=== PATIENT | male | born 1960 | race Caucasian/White ===

== ENCOUNTER → 2018-12-26 09:23 | Outpatient (CLI) | payer BC ==
[~2018-12-26 09:23] MED LIST: BAYER CHEWABLE81 MG PO; COLACE100 MG PO; FLOMAX0.4 MG PO; K-TAB10 MEQ PO; LISINOPRIL20 MG PO; LOPRESSOR25 MG PO; MYLANTA / MAALO30 ML PO; PERCOCET 5-3251 TAB PO; PLAVIX75 MG PO; Senokot-S Tablet PO; ZOCOR40 MG PO
== END | disposition home or self-care (01) ==
LOC: D.HCCARDIO 09:23
DX: I20.9 Angina pectoris, unspecified (principal)

== ENCOUNTER 2019-01-20 11:12 | Outpatient (CLI) | payer BC ==
[~2019-01-20] VITALS: Ht 175.3 cm; Wt 87.3 kg
--- NOTE | ~2019-01-20 | HEMODYNAMI ---
PATIENT:LISA SANTOS MEDICAL RECORD: [id number] : 58 LOCATION:[facility] ADMISSION DATE: 01/20/19 Generatedon:01/20/201914:37 Patient name: LISA SANTOS Patient #: [id number] SSN: : 1960 Date of study: 01/20/2019 Page: Of Hemodynamic Procedure Report Patient Data Patient Demographics Procedure consent was obtained First Name: LISA Gender: Male Last Name: DANIELLE : 1960 [facility] Initial: ESTRELLA Age: 58 year(s) Patient #: [id number] Race: Unknown Additional ID: [id number] Contact details Address: [address] [place] [address] State: [place] City: [place] Zip code: [address] Past Medical History Allergies Allergen Reaction Date Comments Reported Morphine 01/20/2019 Admission Admission Data Admission Date: 01/20/2019 Admission Time: 11:12 Lab Results Lab Result Date: 01/20/2019 Lab Result Time: 0:00 Biochemistry Name Units Result Min Max BUN mg/dl 18 --(---*)-- 7 18 Creatinine mg/dl 1.1 --(--*-)-- 0.6 1.3 CBC Name Units Result Min Max Hematocrit % 42 --(*---)-- 42 54 Hemoglobin g/dl 14.4 --(*---)-- 13.5 17.5 Procedure Procedure Types Cath Procedure Diagnostic Procedure [facility] w/Coronaries Procedure Description Procedure Date Procedure Date: 01/20/2019 Procedure Start Time: 14:23 Procedure End Time: 14:36 Procedure Staff Name Function David Slade MD Performing Physician Melanie Allison RT Monitor Trenton Wood RT Scrub Ebony Collier RN Nurse Procedure Data Cath Procedure Fluoroscopy Diagnostic fluoroscopy Total fluoroscopy Time: 0 time: 0 min min Diagnostic fluoroscopy Total fluoroscopy dose: 494 dose: 494 mGy mGy Contrast Material Contrast Material Type Amount (ml) Isovue 300 62 Entry Location Entry Primary Successful Side Size Upsize Upsize Entry Closure Go ccessful Closure Location (Fr) 1 (Fr) 2 (Fr) Remarks Device Remarks Radial Right 6 Fr Mechanical artery Short Compression Estimated blood loss: 10 ml Diagnostic catheters Device Type Used For End Catheter Placement DIAGNOSTIC Torrington 110cm 5 Procedure Fr catheter ([id number]) Procedure Complications No complications Procedure Medications Medication Administration Route Dosage Oxygen etCO2 Nasal cannula 2 l/min Lidocaine 2% added to field 20 Heparin Flush Bag added to field 2 bags (1000units/500ml NS) 0.9% NaCl I.V. 100 ml/hr Versed I.V. 1 mg Fentanyl I.V. 50 mcg Versed I.V. 1 mg Fentanyl I.V. 50 mcg Radial Cocktail I.A. 1 syringe (Verapamil 2mg/Nitro 400mcg/Heparin 1500units) Hemodynamics Rest HGB: 14.4 (g/dl) Heart Rate: 64 (bpm) Pressure Samples Time Site Value (mmHg) Purpose Heart Use Rate(bpm) 14:26 LV 113/-8,7 EDP 72 Gradients Valve Time Site Site Mean SEP/DFP Peak To Heart Use 1 2 (mmHg) (sec/min) Peak Rate (mmHg) (bpm) Aortic 14:26 LV AO 73 Snapshots Pre Cath Intra NCS Post Cath Vital Signs Time Heart Resp SPO2 etCO2 NIBP Rhythm Pain Sedation Rate (ipm) (%) (mmHg) (mmHg) Status Level (bpm) 14:17:54 67 12 100 37.4 113/67(85) NSR 0 (11) 10(A) , No pain 14:22:05 66 17 99 47.9 107/63(84) NSR 0 (11) 10(A) , No pain 14:26:11 72 15 98 0 97/61(74) NSR 0 (11) 9(A) , No pain 14:30:21 73 11 100 12.7 111/58(87) NSR 0 (11) 9(A) , No pain 14:34:33 68 16 100 0 104/60(77) NSR 0 (11) 10(A) , No pain Medications Time Medication Route Dose Verified Delivered Reason Notes Effectiveness by by 14:15:27 Oxygen etCO2 2 l/min David Buffie used for Nasal Berlin Collier RN procedure cannula 14:15:36 Lidocaine 2% added 20ml David David for local to vial Berlin Slade MD anesthetic field 14:15:42 Heparin Flush added 2 bags David David used for Bag to Berlin Slade MD procedure (1000units/500ml field NS) 14:15:52 0.9% NaCl I.V. 100 David Buffie Per ml/hr Berlin Collier RN physician 14:20:24 Versed I.V. 1 mg David Buffie for sedation Berlin Collier RN 14:20:30 Fentanyl I.V. 50 mcg David Buffie for sedation Berlin Collier RN 14:23:37 Radial Cocktail I.A. 1 David David for (Verapamil syringe Berlin Slade MD vasodilation 2mg/Nitro 400mcg/Heparin 1500units) 14:25:21 Versed I.V. 1 mg David Buffie for sedation Berlin Collier RN 14:25:25 Fentanyl I.V. 50 mcg David Buffie for sedation Berlin Collier RN Procedure Log Time Note 13:50:57 Ebony Collier RN sent for patient. Start room use. 13:55:40 Signed procedure consent form obtained from patient. 13:55:41 Diagnostic Cath status Elective 13:55:42 Time tracking: Regular hours (M-F 7:00 - 5:00) 13:55:46 Plan of Care:Hemodynamics will remain stable., Cardiac rhythm will remain stable., Comfort level will be maintained., Respiratory function will remain adequate., Patient/ family verbilizes understanding of procedure., Procedure tolerated without complication., Recovers from procedure without complications.. 13:57:39 H&P Date Dictated: 12/17/2018 Within 30 days and on chart., H&P Addendum completed by physician on day of procedure. (MUST COMPLETE FOR ALL OUTPATIENTS). 13:57:47 Patient allergic to Morphine 14:03:46 Lab Result : BUN 18 mg/dl 14:03:46 Lab Result : Hemoglobin 14.4 g/dl 14:03:46 Lab Result : Creatinine 1.1 mg/dl 14:03:46 Lab Result : Hematocrit 42 % 14:03:59 Patient received from Pre/Post Procedure Room to CCL 1 Alert and oriented. Tansferred to table in Supine position. 14:04:05 Warm blankets applied, and caitlin hugger turned on for patient comfort. 14:04:06 Correct patient and procedure confirmed by team. 14:04:06 ECG and BP/O2 sat monitors applied to patient. 14:15:27 Oxygen 2 l/min etCO2 Nasal cannula was administered by Ebony Collier RN; used for procedure; 14:15:36 Lidocaine 2% 20ml vial added to field was administered by David Slade MD; for local anesthetic; 14:15:42 Heparin Flush Bag (1000units/500ml NS) 2 bags added to field was administered by David Slade MD; used for procedure; 14:15:52 0.9% NaCl 100 ml/hr I.V. was administered by Ebony Collier RN; Per physician; 14:16:46 Vital chart was started 14:16:47 Baseline sample Acquired. 14:16:52 Rhythm: sinus rhythm 14:16:53 Full Disclosure recording started 14:16:53 Pre-procedure instructions explained to patient. 14:16:54 Pre-op teaching completed and patient verbalized understanding. 14:16:55 Family in patients room. 14:16:57 Patient NPO since Midnight. 14:16:59 Is patient on blood thinner?No 14:17:01 Patient diabetic? No. 14:17:05 Previous problem with sedation/anesthesia? No ? 14:17:07 Snore? Yes 14:17:08 Sleep apnea? No 14:17:09 Deviated septum? No 14:17:10 Opens mouth fully? Yes 14:17:10 Sticks out tongue? Yes 14:17:12 Airway obstruction? No ? 14:17:13 Dentures? No ? 14:17:15 Modified Alfredo's test Ulnar < 7 seconds 14:17:18 Pre procedure: right dorsailis pedis pulse 1+ Palpable, but thready & weak; easily obliterated 14:17:20 Patient pain scale 0/10 ?. 14:17:22 IV patent on arrival in left hand with 0.9% NaCl at [facility]. 14:17:24 Lab results completed and on chart. 14:17:27 Right Radial & Right Groin area was prepped with chlora-prep and draped in sterile fashion 14:17:27 Alarms reviewed by R. N. 14:17:28 Sharps counted by scrub and verified by R.N. 14:17:30 Use device set Radial Dx or PCI 14:17:31 ACIST Syringe (46171) opened to sterile field. 14:17:32 Bag Decanter (2001S) opened to sterile field. 14:17:32 ACIST Hand Control (55195) opened to sterile field. 14:17:33 ACIST Manifold (54807) opened to sterile field. 14:17:33 Tegaderm 4 x 4 (1626W) opened to sterile field. 14:17:36 Medline Cath Pack ([id number]) opened to sterile field. 14:17:37 DIAGNOSTIC WIRE .035 260cm J wire (379815) opened to sterile field. 14:17:37 MBrace Wrist Support ([id number]) opened to sterile field. 14:17:38 NEEDLE Cook 21G 4cm Radial ([id number]) opened to sterile field. 14:17:39 SHEATH 6FR Slender (05-5418) opened to sterile field. 14:18:41 --------ALL STOP TIME OUT------ 14:18:41 Final Timeout: patient, procedure, and site verified with staff and physician. All members of the team are in agreement. 14:18:43 Right Radial & Right Groin site verified by team. 14:18:45 Maximum allowable Isovue 300 dose 300ml. Physician notified. (300ml for normal creatinines. For patients with creatinine of 1.7 or higher multiply weight(kg) x 5 divided by creatinine.) 14:18:49 Fire Safety Assessment: A--An alcohol-based skin anteseptic being used preoperatively., C--Open oxygen or nitrous oxide is being used., D--An ESU, laser, or fiber-optic light is being used. 14:18:52 Physical assessment completed. ASA score P 2 - A patient with mild systemic disease as per David Slade MD. 14:18:54 Sedation plan: IV Moderate Sedation Medication:Versed, Fentanyl 14:20:24 Versed 1 mg I.V. was administered by Ebony Collier RN; for sedation; 14:20:28 Zero performed for pressure channel P1 14:20:30 Fentanyl 50 mcg I.V. was administered by Ebony Collier RN; for sedation; 14:22:27 Procedure started. 14:23:12 Zero performed for pressure channel P1 14:23:37 Radial Cocktail (Verapamil 2mg/Nitro 400mcg/Heparin 1500units) 1 syringe I.A. was administered by David Slade MD; for vasodilation; 14:23:39 Local anesthetic to right radial artery with Lidocaine 2% by David Slade MD.INITIAL ACCESS ONLY 14:24:23 A 6 Fr Short sheath was inserted into the Right Radial artery 14:25:08 A DIAGNOSTIC Torrington 110cm 5 Fr catheter ([id number]) was advanced over the wire and used for Procedure. 14:25:21 Versed 1 mg I.V. was administered by Ebony Collier RN; for sedation; 14:25:25 Fentanyl 50 mcg I.V. was administered by Ebony Collier RN; for sedation; 14:25:47 LV gram done using WALLACE 14:26:14 Injector settings: Ml/sec: 7, Volume: 15, 14:26:17 LV hemodynamics recorded. 14:26:24 EF : 55 % 14:28:50 LCA angiography performed. 14:31:20 RCA angiography performed. 14:32:19 Catheter exchanged over wire. 14:33:28 Procedure ended.(Physican Out) 14:33:59 TR BAND Standard ([id number]) opened to sterile field. 14:34:05 Sheath removed intact; hemostasis achieved with Mechanical Compression to the Right Radial artery. 14:34:19 Flurop Dose total: 494 14:34:19 Fluoroscopy dose: 494 mGy 14:34:22 Fluoroscopy time 00.00 minutes. 14:34:30 Contrast amount:Isovue 300 62ml. 14:34:32 Sharps counted by scrub and verified by R.N. 14:35:39 TR band inflated with 12cc of air. 14:35:43 Post-procedure physical assessment completed. ASA score P 2 - A patient with mild systemic disease as per David Slade MD. 14:35:50 Post procedure rhythm: sinus rhythm 14:35:52 Estimated blood loss: 10 ml 14:35:54 Post procedure instruction explained to patient.Patient verbalizes understanding. 14:35:54 Patient needs reinforcement of post procedure teaching. 14:36:22 Procedure and supply charges have been captured, reviewed, submitted and are correct. 14:36:22 Vital chart was stopped 14:36:25 Procedure Complication : No complications 14:36:27 See physician's report for complete and final results. 14:36:28 Report given to Pre/Post Procedure Room. 14:36:30 Patient transfered to Pre/Post Procedure Room with Bed. 14:36:33 Procedure ended. 14:36:33 Full Disclosure recording stopped 14:36:37 End room use (Document Last) Device Usage Item Name Manufacture Quantity Catalog Hospital Part Current Minimal Lot# / Number Charge Number Stock Stock Serial# Code ACIST Acist 1 19188 770232 008883 587240 20 Syringe Medical (98385) Systems Inc Bag Microtek 1 2001S 472789 00846 353897 5 Decanter Medical Inc. () ACIST Hand Acist 1 69370 347757 663446 825739 5 Control Medical (94050) Systems Inc ACIST Acist 1 60232 340403 244968 260958 5 Manifold Medical (74348) Systems Inc Tegaderm 4 3M 1 1626W 217252 979136 997752 5 x 4 (1626W) Medline Medline 1 [id number] 074159 80208 140992 5 Cath Pack ([id number]) DIAGNOSTIC [facility] [place] 1 344660 398566 610366 887081 30 WIRE .035 260cm J wire (006600) MBrace Advanced 1 140-0250-00 726451 21573 219479 5 Wrist Vascular Support Dynamics ([id number]) NEEDLE Cook Cook Medical 1 C98192 455423 012161 675413 5 21G 4cm Radial (N55674) SHEATH 6FR Terumo 1 [id number] 220889 508013 922586 5 Slender (80-1060) DIAGNOSTIC Terumo 1 40-6363 888065 468928 316876 5 Torrington 110cm 5 Fr catheter (076520) TR BAND Terumo 1 [id number] 752476 913299 780032 40 Standard ([id number]) Signature Audit [place] Stage Time Signature Unsigned Intra-Procedure 01/20/2019 Melanie Allison 2:37:18 PM RT(R) Signatures Monitor : Melanie Allison Signature : RT Date : Time : [facility] [address] [place] [address]
[2019-01-20] MEDS ORDERED: FLOMAX0.4 MG PO (11:30)
[2019-01-20] MEDS ORDERED: BAYER CHEWABLE81 MG PO (11:30)
[2019-01-20] MEDS ORDERED: LISINOPRIL20 MG PO (11:30)
[2019-01-20] MEDS ORDERED: ZOCOR40 MG PO (11:30)
[2019-01-20 11:48] VITALS: BP 124/79; Ht 175.3 cm; Wt 87.3 kg
[2019-01-20 11:56] LABS: BASOPHILS 0.9 % (0-2); EOSINOPHILS 1.4 % (0-7); HEMOGLOBIN 14.4 g/dL (13.5-17.5); IMMATURE GRANULOCYTES 0.3 % (0-5); LYMPHOCYTES 35.4 % (15-50); MCH 31.9 pg (26.0-34.0); MCHC 34.3 g/dL (31.0-37.0); MCV 92.9 fL (80.0-100.0); MEAN PLATELET VOLUME 9.3 fL (7.4-10.4); MONOCYTES 9.7 % (2-11); NEUTROPHILS 52.3 % (40-80); PLATELET COUNT 269 10x3/uL (130-400); RBC 4.52 10x6/uL (4.20-6.10); RDW 13.2 % (11.5-14.5); WBC 7.8 10x3/uL (4.8-10.8)
[2019-01-20 12:06] LABS: ANION GAP 15.1 mmol/L (8-16); CALCIUM 8.9 mg/dL (8.5-10.1); CARBON DIOXIDE 23.9 mmol/L (21.0-32.0); CREATININE - SERUM 1.1 mg/dL (0.6-1.3)
--- NOTE | 2019-01-20 14:45 | NUR ---
PT RECEIVED VIA STRETCHER FROM FLOOR LAYER APPRENTICE POST PROCEDURE FOR RECOVERY. PT AWAKE, DENIES PAIN OR NAUSEA. TR BAND AND IMMOBILIZER IN PLACE, DRESSING CDI NO BLEEDING OR HEMATOMA NOTED. CAP REFILL BRISK, ARM PINK AND WARM. IV PATENT INFUSING VIA ORDERS. CALL LIGHT IN REACH, AT BEDSIDE. SANDWICH AND DRINK GIVEN PER REQUEST.
--- NOTE | 2019-01-20 15:00 | NUR ---
PT SITTING UP, TOLERATED LUNCH W/O NAUSEA. DENIES PAIN OR NEEDS AT THIS TIME. TR BAND IN PLACE, NO BLEEDING OR HEMATOMA NOTED. EXTREMITY WARM AND PINK, CAP REFILL BRISK. AT BEDSIDE. CALL LIGHT IN REACH
--- NOTE | 2019-01-20 15:31 | NUR ---
PT W/O COMPLAINTS. TR BAND IN PLACE, 3CC AIR REMOVED WITHOUT BLEEDING OR SWELLING NOTED. VSS, CALL LIGHT IN REACH, REMAINS AT BEDSIDE.
--- NOTE | 2019-01-20 15:59 | NUR ---
PT RESTING COMFORTABLY, TR BAND IN PLACE, 2 MORE CC AIR REMOVED NO BLEEDING OR SWELLING NOTED. BP 98/55 IVF OPENED UP TO GRAVITY FOR BOLUS. HR NSR RATE 60. PT DENIES PAIN OR ANY OTHER NEEDS AT THIS TIME. CALL LIGHT IN REACH
--- NOTE | 2019-01-20 16:10 | NUR ---
DR MANCERA IN AND SPOKE WITH PT AND REGARDING PLAN OF CARE.
--- NOTE | 2019-01-20 16:30 | NUR ---
IV REMOVED W CATH INTACT, MONITORS REMOVED. 3 MORE CC AIR REMOVED FROM TR BAND, NO BLEEDING OR SWELLING NOTED. PT UP TO DRESS FOR DISCHARGE.
--- NOTE | 2019-01-20 16:35 | NUR ---
PT AMBULATED TO BR, VOIDING W/O DIFFICULITY. DISCHARGE INSTRUCTIONS REVIEWED W PT AND , BOTH VERBALIZED UNDERSTANDING.
--- NOTE | 2019-01-20 16:50 | NUR ---
PT DISCHARGED VIA WC TO PRIVATE VEHICLE WITH ALL BELONGINGS.
== END 2019-01-20 16:50 | disposition home or self-care (01) ==
LOC: D.CATH 11:12
PROVIDERS: ATTEND Internal Medicine Cardiovascular Disease
DX: I25.119 Atherosclerotic heart disease of native coronary artery with unspecified angina pectoris (principal); Z01.812 Encounter for preprocedural laboratory examination

== ENCOUNTER 2019-02-07 08:11 | Inpatient (IN) | payer BC ==
[~2019-02-07] VITALS: Ht 175.3 cm; Wt 86.1 kg
[~2019-02-07 08:11] MED LIST changes: -COLACE100 MG PO; -K-TAB10 MEQ PO; -LOPRESSOR25 MG PO; -MYLANTA / MAALO30 ML PO; -PERCOCET 5-3251 TAB PO; -PLAVIX75 MG PO; -Senokot-S Tablet PO
[2019-02-07 09:44] LABS: EOSINOPHILS 1.1 % (0-7); HEMATOCRIT 43.4 % (42.0-54.0); IMMATURE GRANULOCYTES 0.5 % (0-5); LYMPHOCYTES 30.4 % (15-50); MCHC 34.6 g/dL (31.0-37.0); MCV 92.5 fL (80.0-100.0); MONOCYTES 9.8 % (2-11); NEUTROPHILS 57.2 % (40-80); PLATELET COUNT 256 10x3/uL (130-400); RBC 4.69 10x6/uL (4.20-6.10); RDW 13.3 % (11.5-14.5)
[2019-02-07 10:08] LABS: APTT 27.1 SECONDS (22.8-39.4); INR 0.96 (0.85-1.17); PROTIME 12.3 SECONDS (11.6-15.0)
[2019-02-07 10:23] LABS: ALBUMIN 4.2 g/dL (3.4-5.0); ANION GAP 10.8 mmol/L (8-16); BILIRUBIN - TOTAL 0.43 mg/dL (0.2-1.3); CARBON DIOXIDE 30.9 mmol/L (21.0-32.0); CREATININE - SERUM 1.2 mg/dL (0.6-1.3); PHOSPHOROUS 3.9 mg/dL (2.5-4.9); POTASSIUM - SERUM 3.7 mmol/L (3.5-5.1); PROTEIN - SERUM 7.8 g/dL (6.4-8.2); T4 THYROXIN - FREE 0.9 ng/dL (0.76-1.46); THYROID STIMULATING HORMONE 1.05 uIU/mL (0.36-3.74); URIC ACID 5.5 mg/dL (2.6-7.2)
[2019-02-07 10:37] LABS: AMORPHOUS SEDIMENT >1+ /lpf (NONE SEEN); APPEARANCE SL CLDY (CLEAR); BACTERIA MODERATE /hpf (NONE SEEN); BILIRUBIN NEGATIVE (NEGATIVE); COLOR YELLOW (YELLOW); EPITHELIAL CELLS 0-5 /hpf (0-5); GLUCOSE NEGATIVE (NEGATIVE); KETONE NEGATIVE (NEGATIVE); MUCUS <1+ /lpf (NONE SEEN); NITRITE NEGATIVE (NEGATIVE); PROTEIN NEGATIVE (NEGATIVE); UROBILINOGEN NORMAL (NORMAL); WHITE CELLS - URINE OCC /hpf (0-5)
[2019-02-13] VITALS (59 sets, daily range): BP systolic 87–157; BP diastolic 42–81; BMI 27.9; BMI 29.5
[2019-02-13 07:52] LABS: APPEARANCE CLEAR (CLEAR); BILIRUBIN NEGATIVE (NEGATIVE); COLOR YELLOW (YELLOW); GLUCOSE NEGATIVE (NEGATIVE); KETONE NEGATIVE (NEGATIVE); NITRITE NEGATIVE (NEGATIVE); PROTEIN NEGATIVE (NEGATIVE); UROBILINOGEN NORMAL (NORMAL)
--- NOTE | 2019-02-13 10:37 | NUR ---
DR. CAMPA'S OFFICE NOTIFIED OF CONSULT. SPOKE WITH EDIS.
--- NOTE | 2019-02-13 11:30 | NUR ---
PT ARRIVED FROM OR VIA BED AROUND 1113. ON VENT. R-14, TV 550, FIO2 40%, PEEP 5. ETT 7.5 24 AT THE LIP. MIDSTERNAL INCISION WITH DRESSING C/D/I. SUBTERNAL CT X 2 Y'D TOGETHER. L-ADIS DRAIN. SUBTERNAL DRESSING C/D/I. CT CONNECTED TO 20CM SUCTION. NO AIR LEAK NOTED AT THIS TIME. R-RADIAL BRAD SECURED IN PLACE WITH WRIST PROTECTOR. RIGHT LEG HARVEST SITES WRAPPED WITH COBAN DRESSING FROM GROIN TO ANKLE. PEDAL PULSES PALP. RIJ WITH PLASMOLYTE AT 100ML/HR AND NITRO AT 1.5ML/HR. CONNECTED TO ICU MONITORS. WRIST RESTRAINTS APPLIED UPON ARRIVAL PER ORDERS. TEE IN PLACE WITH CLEAR YELLOW URINE NOTED. WILL CONTINUE TO MONITOR CLOSELY.
--- NOTE | 2019-02-13 14:34 | NUR ---
OLIVIA INITIATED AT THIS TIME PER ORDERS. SEE IV FLOWSHEET FOR DETAILS.
--- NOTE | 2019-02-13 14:36 | NUR ---
NITROGLYCERIN TURNED OFF AT THIS TIME. SEE IV FLOWSHEET FOR DETAILS.
--- NOTE | 2019-02-13 15:08 | NUR ---
DR. MARTÍNEZ NOTIFIED OF BLOOD GAS RESULTS. OK TO EXTUBATE AT THIS TIME. WANTS ABG'S REPEATED 1HR AFTER EXTUBATION.
--- NOTE | 2019-02-13 15:15 | NUR ---
EXTUBATED AT THIS TIME PER DR. MARTÍNEZ'S ORDERS. PLACED ON 2L OF VIA NC.
--- NOTE | 2019-02-13 16:04 | NUR ---
PT REPORTS PAIN 8/10 ON HIS INCISION AND ON HIS BACK. PERCOCET GIVEN FOR PAIN PER ORDERS. WILL CONTINUE TO MONITOR AND TREAT.
--- NOTE | 2019-02-13 16:35 | NUR ---
DR. MARTÍNEZ NOTIFIED OF ABG'S 1HR AFTER EXTUBATION. ORDERED PLASMOLYTE TO BE INCREASED TO 200ML/HR FOR 2HRS AND 1 AMP OF BICARB TO GIVEN IN 10MINUTES.
--- NOTE | 2019-02-13 16:55 | NUR ---
1 AMP OF BICARB GIVEN OVER 10MIN PER DR. MARTÍNEZ'S ORDERS. PT STATES THAT PAIN IS BEGINNING TO DECREASE. RATES PAIN 6/10 MAINLY ON HIS BACK AT THIS TIME. WILL CONTINUE TO MONITOR.
--- NOTE | 2019-02-13 17:33 | NUR ---
RATES PAIN 7/10 INCITIONAL AND BACK PAIN. DILAUDID 1MG IV GIVEN PER ORDERS. WILL CONTINUE TO MONITOR AND TREAT.
--- NOTE | 2019-02-13 18:02 | NUR ---
RATES PAIN 3/10 AT THIS TIME. RESTING COMFORTABLY. WILL CONTINUE TO MONITOR.
--- NOTE | 2019-02-13 18:12 | NUR ---
PT PULLS BETWEEN 750 AND 1000 ON INCENTIVE SPIROMETER.
--- NOTE | 2019-02-13 18:36 | NUR ---
PLASMOLYTE RATED CHANGED BACK TO 100ML/HR PER ORDERS.
--- NOTE | 2019-02-13 19:00 | NUR ---
REPORT RECEIVED AND ASSESSMENT COMPLETED. SE4E FLOWSHEET FOR FULL DETAILS. PT IS POST OP CABG X [address] NO AIR LEAK ADIS DRAIN WITH MINIMAL DRAINAGE. HAD LOW URINE OUTPUT AT BEGINNING OF SHIFT. WILL MONITOR CLOSELY.VSS AT THIS TIME.
[2019-02-14] VITALS (52 sets, daily range): BP systolic 103–150; BP diastolic 54–94; Ht 175.3 cm; Wt 86.1 kg
[2019-02-14 05:46] LABS: HEMATOCRIT 33.6 % (42.0-54.0); HEMOGLOBIN 11.4 g/dL (13.5-17.5); MCH 31.3 pg (26.0-34.0); MCHC 33.9 g/dL (31.0-37.0); MCV 92.3 fL (80.0-100.0); MEAN PLATELET VOLUME 9.2 fL (7.4-10.4); RBC 3.64 10x6/uL (4.20-6.10); RDW 13.4 % (11.5-14.5)
[2019-02-14 05:56] LABS: ANION GAP 14.5 mmol/L (8-16); CARBON DIOXIDE 24.6 mmol/L (21.0-32.0); POTASSIUM - SERUM 4.1 mmol/L (3.5-5.1)
[2019-02-14 06:14] LABS: ALBUMIN 2.9 g/dL (3.4-5.0); BILIRUBIN - TOTAL 0.37 mg/dL (0.2-1.3); CALCIUM 7.8 mg/dL (8.5-10.1); CREATININE - SERUM 1.1 mg/dL (0.6-1.3); PROTEIN - SERUM 5.8 g/dL (6.4-8.2)
--- NOTE | 2019-02-14 07:12 | NUR ---
ORAL CARE DONE WITH PERIDEX
--- NOTE | 2019-02-14 09:21 | NUR ---
0700 PT RECIEVED UP IN CHAIR ALERT AND ORIENTED VSS O2 NC, R IJ CVL DRESSING CDI WITH PLASMALYTE, NITRO AND ZINACEF INFUSING, R RADIAL A LINE ZEROED, WRIST PROTECTOR IN PLACE, MIDSTERNAL AND SUBSTERNAL DRESSINGS CDI WITH SUBSTERNAL CTX2 Y'D TOGETHER TO 20CM SUCTION, NO AIR LEAK, SUBSTERNAL ADIS DRAIN COMPRESSED, TPM WIRES COILED, RLE HARVEST SITES WITH COBAN GROIN TO TREVOR SHANEEY DRAINING YELLOW URINE. 0730 DR MARTÍNEZ IN ROOM ORDERS TO DC A LINE, TEE, PLASMALYTE, CT TO WATER SEAL, UNWRAP COBAN FROM RLE 0830 AM MEDS GIVEN AND BRAD AND TEE DCD PER PROTOCOL, RLE DRESSING REMOVED AND TEDS/SCDS APPLIED, NITRO WEANED OFF PER ORDERS
--- NOTE | 2019-02-14 11:28 | TEE ---
PATIENT:LISA SANTOS MEDICAL RECORD: [id number] LOCATION:[place] [address] AGE OF PATIENT: 58 ADMISSION DATE: 02/13/19 SEX: M REFERRING PHYSICIAN: INTERPRETING PHYSICIAN: AGATHA ZUNIGA MD TRANSESOPHAGEAL ECHOCARDIOGRAM Date: 02/13/19 SARA CHARGE Y INDICATIONS: CABG PREMEDICATIONS: PATIENT'S RESPONSE PROCEDURE DOPPLER MEASUREMENTS: LVIT LA PA RA LVOT RVOT Asc. Ao AV Gradient Peak AV Mean AV Area MV Gradient Peak MV Mean MV Area INTERPRETATION: Doppler: 2-D: COLOR FLOW DOPPLER TINY TRACE MR NORMAL SALINE STUDY: MISCELLANOUS: DIAGNOSIS: PLAN: Medical Delivery Technician:1 Dr. Zuniga Sinter Feeder: Vee HOPSON COMMENTS: LVDS. 3.7 LVS. 2.9 TANYA/FIORDALIZA PATIENT DATE OF SERVICE: 02/13/2019 PROCEDURE: Transesophageal echo evaluation of valvular structures during bypass surgery. FINDINGS: 1. Left ventricular chamber size is within normal limits. Left ventricular systolic function is normal. Overall ejection fraction estimated at 60%. 2. Left atrium, right atrium, and right ventricular chamber sizes are within TRANSESOPHAGEAL ECHOCARDIOGRAM REPORT [id number] HELGA SANTOS normal limits. 3. Valvular structures have normal structure and motion. 4. Doppler interrogation reveals trace mitral regurgitation, no other valvular insufficiency or stenosis. 5. No evidence of pericardial effusion or left ventricular thrombus. TRANSINT:[id number] Voice Confirmation ID: [id number] DOCUMENT ID: [id number] at 1128 CC: [id number] DICTATION DATE: 02/13/19 1531 BLUE LINE HANGER: 02/14/19 0300 ADM IN [place] [id number] [place] [address]
--- NOTE | 2019-02-14 11:56 | NUR ---
1030 AMBULATED 65FT WITH PT, 30ML OUTPUT FROM CT
--- NOTE | 2019-02-14 13:21 | OP ---
PATIENT NAME: LISA SANTOS MEDICAL RECORD: [id number] :58 LOCATION:[facility] D.[facility] ADMISSION DATE:02/13/19 SURGEON: KRISTOFER MARTÍNEZ MD DATE OF OPERATION: 02/13/2019 SURGEON: Kristofer Martínez MD LABOR RELATIONS TEACHER: Layton Barton OPERATION PERFORMED: Off-pump coronary artery bypass graft times 2 (left internal mammary to LAD, reverse saphenous vein from aorta to diagonal). PREOPERATIVE DIAGNOSIS: Coronary artery disease with unstable angina. POSTOPERATIVE DIAGNOSIS: Coronary artery disease with unstable angina. ANESTHESIA: General endotracheal anesthesia. ESTIMATED BLOOD LOSS: 500 cc with 200 cc Cell Saver retransfusion. COMPLICATIONS: None. SPECIMENS: None. CONDITION: Stable. DISPOSITION: CV ICU. OPERATIVE FINDINGS: 1. Normal transesophageal echocardiography with trace mitral regurgitation. 2. Good quality left internal mammary artery. The LAD was a 2.0 mm vessel with diffuse disease. 3. Two bridging incisions at right lower leg for removal of vein. The diagonal vessel was 2.0 mm. A Heartstring device was used for the proximal anastomosis. OPERATIVE INDICATION: Coronary artery disease with bifurcation of LAD diagonal stenosis. PROCEDURE IN DETAIL: The patient was brought to the operative suite. General anesthesia was obtained. The patient was prepped and draped. The greater saphenous vein harvested with 2 bridging incisions in the right lower extremity. Side branches were clipped. Vessel was ligated proximally and distally, and removed. Side branches were tied. Leg was irrigated and closed in 2 layers. Median sternotomy incision was made. Subcutaneous tissue was divided by electrocautery. Sternum was divided with a saw. Left hemisternum was elevated. Left pleural cavity was entered. Left internal mammary vein was taken down as a pedicle graft. Sternal retractor was placed. Pericardium was opened. Heparin was given. Internal mammary was clipped distally and made ready for anastomosis. Heart was elevated and each vessel was inflow occluded and stabilized with the off pump retractor and distal anastomosis was performed in standard technique with single proximal anastomosis with Heartstring device and then flow was restored. Proximal and distal anastomotic sites were inspected for bleeding. Single 6-0 OPERATIVE REPORT [id number] LISA SANTOS was placed in the proximal anastomotic site and the patient was stable. Protamine was given. Drains were placed in mediastinum and left pleural cavity. Thorough irrigation was undertaken. Ventricular pacing wires were placed. Pericardial fat was loosely reapproximated. Left chest was evacuated. Internal mammary harvest site was inspected for bleeding and 0.25% Marcaine was used there and in the sternal fascia. Sternum was closed with wires. Fascia was closed. Subcutaneous tissue was closed. Skin was closed. Dermabond was placed. Needle and sponge counts were reported as correct. The patient was taken to the ICU in stable condition. TRANSINT:[id number] Voice Confirmation ID: [id number] DOCUMENT ID: [id number] KRISTOFER MARTÍNEZ MD at 1321 CC: CLARE MANCERA M.D. [id number] DICTATION DATE: 02/13/19 1509 SOFTBALL WINDER: 02/13/19 1617 ADM IN [place] [id number] [place] [id number]
--- NOTE | 2019-02-14 14:21 | NUR ---
WALKED WITH PHYSICAL THERAPY 150 FT.
--- NOTE | 2019-02-14 15:30 | NUR ---
UNABLE TO VOID SINCE NAY DC'D @ 0702. IN AND OUT CATH DONE WITH IMMEDIATE RETURN 700CC CLEAR YELLOW URINE.
--- NOTE | 2019-02-14 19:20 | NUR ---
REPORT REC'D AND CARE ASSUMED, REC'D PT SITTING UP IN RECLINER WATCHING TV, URINAL AT BS, EMPTIED OF 100CC CLEAR YELLOW URINE, PT AWAKE, ALERT, AND ORIENTED X 4 ON ROOM AIR, CM-SR AT 81, MIDSTERNAL DRSG CDI, RIJ CVL DRSG CDI, SIDE PORTS SALINE LOCKED, SUBSTERNAL DRSG CDI MEDIASTINAL CT X 2, CT TO WATER SEAL, SANGUINOUS DRAINAGE NOTED, LEFT SUBSTERNAL DAIS DRAINED TO BULB SUCTION WITH SANGUINOUS DRAINAGE NOTED, PT DENIES PAIN OR NEEDS, CALL LIGHT IN REACH.
--- NOTE | 2019-02-14 20:30 | NUR ---
PT UNCOMFORTABLE IN CHAIR BUT DOES NOT WANT TO GO BACK TO BED YET DUE TO HAVING TO URINATE FREQUENTLY, BLANKET AND CUP OF ICE PROVIDED REQUEST.
--- NOTE | 2019-02-14 20:50 | NUR ---
EVENING MEDS GIVEN ORDERED, PT REMAINS IN RECLINER, NO VISITORS IN AT THIS TIME, WILL MONITOR FOR CHANGES.
--- NOTE | 2019-02-14 22:15 | NUR ---
PT COMPLAINS OF THE SPACE BETWEEN BED AND RECLINER BEING TO TIGHT, BED MOVED AND RECLINER REPOSITIONED TO ALLOW PATIENT A LITTLE MORE ROOM, URINAL EMPTIED OF 200CC CLEAR YELLOW URINE, PT STATES " I START TO HURT WHEN I GET UP AND STAND TOO LONG", EXPLAINED TO PT I WOULD CHECK ON TIME PAIN MEDICATION WAS DUE.
--- NOTE | 2019-02-14 22:25 | NUR ---
PERCOCET 1 TABLET GIVEN FOR COMPLAINTS OF INCISIONAL PAIN RATING IT " 6" ON 0-10 PAIN SCALE, PT DENIES NAUSEA OR OTHER NEEDS, CALL LIGHT IN REACH.
--- NOTE | 2019-02-14 23:00 | NUR ---
REASSESSMENT COMPLETED, NO CHANGES FROM PREVIOUS ASSESSMENT, CM-SR @ 79, BP STABLE, PT PULLING 1000 ON IS, O2 SAT 96-97 % ON ROOM AIR, WILL CONT TO MONITOR FOR CHANGES.
[2019-02-15] VITALS (23 sets, daily range): BP systolic 104–139; BP diastolic 59–86
--- NOTE | 2019-02-15 01:00 | NUR ---
NO CHANGES IN STATUS AT THIS TIME, PT REMAINS UP IN CHAIR, CALL LIGHT IN REACH, DOZING AT INTERVALS.
--- NOTE | 2019-02-15 03:00 | NUR ---
REASSESSMENT COMPLETED, PT RESTING EYES CLOSED IN RECLINER, BP STABLE, MIDSTERNAL DRSG CDI, RIJ CVL SALINE LOCKED, DRSG CDI, MEDIASTINAL CT TO WATER SEAL, NO AIR LEAK NOTED, VSS, WILL CONT TO MONITOR FOR CHANGES.
--- NOTE | 2019-02-15 04:45 | NUR ---
RADIOLOGY AT BS FOR AM CXR
--- NOTE | 2019-02-15 05:15 | NUR ---
HIBICLENS BATH AND COMPLETE LINEN CHANGE PROVIDED, RIGHT LOWER LEG INCISIONS CDI, NO REDNESS OR DRAINAGE NOTED, TEDS REMOVED FOR BATH AND BREAK, PT STOOD AND WEIGHED AT THIS TIME, WISHES TO REMAIN IN RECLINER, LINENS CHANGED IN RECLINER, PT DENIES PAIN OR OTHER NEEDS, WARM BLANKET PROVIDED, CALL LIGHT IN REACH.
--- NOTE | 2019-02-15 05:44 | NUR ---
AM LAB DRAWN FROM CV AND SENT TO LAB.
[2019-02-15 06:00] LABS: BASOPHILS 0.2 % (0-2); EOSINOPHILS 0.1 % (0-7); HEMATOCRIT 33.2 % (42.0-54.0); HEMOGLOBIN 11.2 g/dL (13.5-17.5); IMMATURE GRANULOCYTES 0.4 % (0-5); LYMPHOCYTES 10.8 % (15-50); MCH 31.5 pg (26.0-34.0); MCHC 33.7 g/dL (31.0-37.0); MCV 93.5 fL (80.0-100.0); MEAN PLATELET VOLUME 9.1 fL (7.4-10.4); MONOCYTES 9.3 % (2-11); NEUTROPHILS 79.2 % (40-80); PLATELET COUNT 219 10x3/uL (130-400); RBC 3.55 10x6/uL (4.20-6.10); WBC 16.5 10x3/uL (4.8-10.8)
--- NOTE | 2019-02-15 06:00 | NUR ---
AM MEDS GIVEN ORDERED, ICE WATER PROVIDED ON REQUEST, PT DENIES FURTHER NEEDS, CALL LIGHT IN REACH.
[2019-02-15 06:32] LABS: ALKALINE PHOSPHATASE 51 U/L (46-116); ALT (SGPT) 30 U/L (10-68); BILIRUBIN - TOTAL 0.42 mg/dL (0.2-1.3); CALC OSMOLALITY 276 mosm/kg (275-300); CALCIUM 8.2 mg/dL (8.5-10.1); CARBON DIOXIDE 28.2 mmol/L (21.0-32.0); CHLORIDE - SERUM 103 mmol/L (98-107); CREATININE - SERUM 0.9 mg/dL (0.6-1.3); GLUCOSE 113 mg/dL (74-106); PROTEIN - SERUM 6.4 g/dL (6.4-8.2); SODIUM 138 mmol/L (136-145); eGFR NON AFRICAN AMERICAN > 90 mL/min (90-120)
[2019-02-15 06:33] LABS: UREA NITROGEN 13 mg/dL (7-18)
--- NOTE | 2019-02-15 07:03 | NUR ---
ORAL CARFE DONE
--- NOTE | 2019-02-15 11:10 | NUR ---
0945: DR. MARTÍNEZ HERE. CONDITION UPDATE GIVEN. 1000: SUBSTERNAL CT DC'D BY DR. MARTÍNEZ. 1010: IV STARTED R FOREARM WITH 20G ON 1ST ATTEMPT. 1020: R IJ DC'D. MANUAL PRESSURE HELD X 1 MIN. DRESSED WITH 2X2 AND TEGADERM.
[2019-02-16] VITALS (17 sets, daily range): BP systolic 97–154; BP diastolic 58–86
[2019-02-16 06:01] LABS: HEMATOCRIT 33.4 % (42.0-54.0); HEMOGLOBIN 11.2 g/dL (13.5-17.5); MCH 31.6 pg (26.0-34.0); MCHC 33.5 g/dL (31.0-37.0); MCV 94.4 fL (80.0-100.0); MEAN PLATELET VOLUME 9.1 fL (7.4-10.4); RBC 3.54 10x6/uL (4.20-6.10); RDW 14.2 % (11.5-14.5); WBC 13.9 10x3/uL (4.8-10.8)
[2019-02-16 06:24] LABS: ALKALINE PHOSPHATASE 55 U/L (46-116); ALT (SGPT) 28 U/L (10-68); BILIRUBIN - TOTAL 0.41 mg/dL (0.2-1.3); CALC OSMOLALITY 278 mosm/kg (275-300); CALCIUM 8.7 mg/dL (8.5-10.1); CARBON DIOXIDE 28.2 mmol/L (21.0-32.0); CHLORIDE - SERUM 103 mmol/L (98-107); CREATININE - SERUM 0.9 mg/dL (0.6-1.3); GLUCOSE 111 mg/dL (74-106); POTASSIUM - SERUM 4.3 mmol/L (3.5-5.1); PROTEIN - SERUM 6.9 g/dL (6.4-8.2); SODIUM 139 mmol/L (136-145); UREA NITROGEN 13 mg/dL (7-18); eGFR NON AFRICAN AMERICAN > 90 mL/min (90-120)
--- NOTE | 2019-02-16 08:20 | NUR ---
DR MARTÍNEZ AT BEDSIDE-PT RETURNED TO BED-PACER WIRE REMOVED BY SAME-ADIS DRAIN REMOVED BY DR MARTÍNEZ-PT INSTRUCTED 20MIN TO LAY IN BED AND REASON-SR ON MONITOR-NO ST ELEVATION OR DECREASE IN AMPLITUDE OF EKG TRACING FAMILY AT [facility]
--- NOTE | 2019-02-16 10:28 | NUR ---
0830-DR MARTÍNEZ AT BEDSIDE-PT RETURNED TO BED FOR REMOVAL OF PACER WIRE AND ADIS DRAIN-SAME DONE BY DR MARTÍNEZ-TOLERATED WELL BY PATIENT-SR ON MONITOR-INSTRUCTED 20MIN STRICT BEDREST 0850-PT UP IN CHAIR-FAMILY AT BEDSDIE-ENCOURAGED INDEPENDENT AMBULATION-TELEMETRY ON PT
--- NOTE | 2019-02-16 15:34 | NUR ---
AMBULATIN IN HALLWAY EASILY
--- NOTE | 2019-02-16 17:41 | NUR ---
AMBULATING EASILY IN HALLWAY-
--- NOTE | 2019-02-16 19:00 | NUR ---
REPORT RECEIVED, SHIFT ASSESSMENT COMPLETE SEE FLOW SHEET, PT AAOx4 DENIES PAIN OR NEEDS AT THIS TIME, PT AMBULATES WITHOUT ASSIST IN ROOM AND GOLDSMITH, DISTRICT SALES MANAGER ON AND FUNCTIONING PROPERLY, NSR ON MONITOR, OTHER VSS, ALL DRSG'S CDI, LARGE CUP ICE WATER GIVEN PER REQUEST, TCDB AND I/S COMPLETED NOTED 2000ML INSPIRED X10, NO FURTHER NEEDS STATED AT THIS TIME, WILL CONTINUE TO MONITOR
--- NOTE | 2019-02-16 21:00 | NUR ---
MEDS GIVEN PER MAR/ORDERS, PT SITTING IN BEDSIDE CHAIR, STATES INCISIONAL PAIN 4/10 ON NUMERIC PAIN SCALE, PRN PAIN MED GIVEN, NSR ON CM, VSS, PT REQUESTED TO SLEEP IN BEDSIDE RECLINER, CALL LIGHT,BEDSIDE TABLE,URINAL WITHIN REACH, PT HAS NONSKID SOCKS ON BLE, PT DENIES OTHER NEEDS AT THIS TIME, WILL CONTINUE TO MONITOR
--- NOTE | 2019-02-16 23:00 | NUR ---
REASSESSMENT COMPLETED SEE FLOW SHEET, NO ACUTE CHANGES OR DISTRESS NOTED, PT RESTING WITH EYES CLOSED, WAKES EASY, DENIES NEEDS AT THIS TIME, VSS, WILL CONTINUE TO MONITOR
[2019-02-17] VITALS (11 sets, daily range): BP systolic 98–133; BP diastolic 59–83
--- NOTE | 2019-02-17 03:00 | NUR ---
REASSESSMENT COMPLETE PER FLOW SHEET, NO ACUTE CHANGES NOTED, PT DENIES [PAIN OR NEEDS, REPOSITIONES SELF FOR COMFORT, VSS, WILL CONTINUE TO MONITOR
[2019-02-17 03:56] LABS: HEMOGLOBIN 10.6 g/dL (13.5-17.5); MCH 31.2 pg (26.0-34.0); MCHC 33.1 g/dL (31.0-37.0); MCV 94.1 fL (80.0-100.0); MEAN PLATELET VOLUME 8.9 fL (7.4-10.4); RBC 3.4 10x6/uL (4.20-6.10); RDW 14.2 % (11.5-14.5)
[2019-02-17 03:57] LABS: WBC 10.1 10x3/uL (4.8-10.8)
--- NOTE | 2019-02-17 04:00 | NUR ---
PT OOB TO BATHROOM, PT AMBULATED AROUND UNIT X2, CHG BATH SUPPLIES PLACED IN PT ROOM, PT BATHED SELF, CLEAN GOWN AND COMPLETE LINEN CHANGE, PT UP IN CHAIR, VSS, NSR ON CM/TELEMITRY, x1 SMALL CUP COFFEE GIVEN PER REQUEST, NO FURTHER NEEDS AT THIS TIME WILL CONTINUE TO MONITOR
[2019-02-17 04:10] LABS: ALBUMIN 2.8 g/dL (3.4-5.0); ALKALINE PHOSPHATASE 51 U/L (46-116); ALT (SGPT) 29 U/L (10-68); BILIRUBIN - TOTAL 0.34 mg/dL (0.2-1.3); CALC OSMOLALITY 279 mosm/kg (275-300); CALCIUM 8.7 mg/dL (8.5-10.1); CARBON DIOXIDE 29.8 mmol/L (21.0-32.0); CHLORIDE - SERUM 103 mmol/L (98-107); CREATININE - SERUM 0.9 mg/dL (0.6-1.3); GLUCOSE 106 mg/dL (74-106); POTASSIUM - SERUM 3.9 mmol/L (3.5-5.1); PROTEIN - SERUM 6.4 g/dL (6.4-8.2); SODIUM 140 mmol/L (136-145); UREA NITROGEN 15 mg/dL (7-18); eGFR NON AFRICAN AMERICAN > 90 mL/min (90-120)
--- NOTE | 2019-02-17 07:00 | NUR ---
SHIFT REPORT RECEIVED. AA&O. RATES PAIN 2/10 AT INCISION. ON ROOM AIR. VSS. NO FEVER. 20G PIV ON R-FOREARM SALINE LOCK. MIDSTERNAL INCISION DRESSING C/D/I. SUBSTERNAL DRESSING C/D/I. RIGHT LEG HARVEST SITES ANNETTE. SAMIR LOMBARDI ON LE. SITTING UP IN CHAIR. WILL CONTINUE TO MONITOR.
--- NOTE | 2019-02-17 08:22 | NUR ---
ATE 100% OF MEAL. AM MEDS GIVEN AT THIS TIME. DENIES FURTHER NEEDS. WILL CONTINUE TO MONITOR.
[2019-02-17] MEDS ORDERED: PERCOCET 5-3251 TAB PO (08:29)
[2019-02-17] MEDS ORDERED: LOPRESSOR25 MG PO (08:43)
[2019-02-17] MEDS ORDERED: PLAVIX75 MG PO (08:43)
[2019-02-17] MEDS ORDERED: MYLANTA / MAALO30 ML PO (08:45)
[2019-02-17] MEDS ORDERED: COLACE100 MG PO (08:45)
[2019-02-17] MEDS ORDERED: Senokot-S Tablet PO (09:09)
[2019-02-17] MEDS ORDERED: K-TAB10 MEQ PO (09:09)
--- NOTE | 2019-02-17 09:44 | NUR ---
FOLLOW UP APPOINTMENT WITH EFRAÍN COLEMAN WITH CARDIOLOGY ON February AT 10:45AM. FOLLOW UP WITH PRIMARY CARE PROVIDER SET UP FOR February AT 11:30AM.
--- NOTE | 2019-02-17 11:48 | NUR ---
DISCHARGE INSTRUCTIONS REVIEWED WITH PATIENT. 20G R-FOREARM PIV DC'D AT THIS TIME. SPOUSE AT BEDSIDE.
--- NOTE | 2019-02-17 12:05 | NUR ---
PT DISCHARGED HOME. PERSONAL BELONGINGS SENT WITH PATIENT. AMBULATED TO PERSONAL VEHICLE WITH SPOUSE.
--- NOTE | 2019-02-17 12:58 | MORECARE ---
CASE MANAGEMENT DISCHARGE SUMMARY PATIENT: LISA SANTOS UNIT: [id number] ADM DATE: 02/13/19 AGE: 58 : 58 SEX: M ROOM/BED: D[facility] AUTHOR: JASVIR RUIZ PHYSICIAN: REFERRING PHYSICIAN: NIGEL MARTÍNEZ MD DATE OF SERVICE: 02/17/19 Discharge Plan Patient Name: [facility]ISA [facility] [facility] 1960 Planned Disposition: Home Anticipated Discharge Date: Discharge Date: 02/17/2019 Expected LOS: Initial Reviewer: [email or web address] Initial Review Date: 02/17/2019 Generated: 02/17/19 1:58 pm DCPIA - Discharge Planning Initial Assessment Updated by [email or web address]: Paradise Glass on 02/17/19 12:57 pm * Is the patient Alert and Oriented? Yes * How many steps to enter\exit or inside your home? * PCP - KELLY TURK APN * Pharmacy [facility] * Preadmission Environment Home with Family * ADLs Independent * Equipment None * List name and contact numbers for known caregivers / representatives who currently or will assist patient after discharge: CHANTAL SANTOS - SPOUSE - [phone] * Verbal permission to speak to the caregivers and representatives has been obtained from the patient. Yes * Community resources currently utilized None * Additional services required to return to the preadmission environment? No * Can the patient safely return to the preadmission environment? Yes * Has this patient been hospitalized within the prior 30 days at any hospital? No Patient Name: LISA SANTOS Page 13783 at 1258 All edits/amendments must be made on the electronic document DICTATION DATE: 02/17/19 1258 CNC LATHE MACHINE OPERATOR: ANN 02/17/19 1258 RPT#: [id number] DC DATE:02/17/19 STATUS: DIS IN [facility] [address] [place] [address] END OF REPORT
--- NOTE | 2019-02-17 13:08 | MORECARE ---
CASE MANAGEMENT DISCHARGE SUMMARY PATIENT: LISA SANTOS UNIT: [id number] ADM DATE: 02/13/19 AGE: 58 : 58 SEX: M ROOM/BED: D[facility] AUTHOR: SARADOC PHYSICIAN: REFERRING PHYSICIAN: NIGEL MARTÍNEZ MD DATE OF SERVICE: 02/17/19 Discharge Plan Patient Name: LISA SANTOS Facility: [facility]:[place] : 1960 Planned Disposition: Home Anticipated Discharge Date: Discharge Date: 02/17/2019 Expected LOS: Initial Reviewer: [email or web address] Initial Review Date: 02/17/2019 Generated: 02/17/19 2:07 pm Comments DCP- Discharge Planning Updated by [email or web address]: Paradise Glass on 02/17/19 11:[address] Patient Name: LISA SANTOS Admission Status: Elective Accout number: [id number] Admission Date: 02-13-2019 : 1960 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 Patient lives at home with his Cecy and plans to return there upon discharge. Patient feels this would be a safe discharge. CM discussed availability / needs of home health and medical equipment. Patient denies any discharge needs at this time. Patient states he will have his drive him home upon discharge. CM will continue to follow and assist as needed with discharge planning / needs. Live In Caregiver: Paradise Glass DCPIA - Discharge Planning Initial Assessment Updated by [email or web address]: Paradise Glass on 02/17/19 12:57 pm * Is the patient Alert and Oriented? Yes * How many steps to enter\exit or inside your home? * PCP - KELLY TURK APN * Pharmacy [facility] * Preadmission Environment Home with Family * ADLs Independent * Equipment None * List name and contact numbers for known caregivers / representatives who currently or will assist patient after discharge: CECY SANTOS - SPOUSE - [phone] * Verbal permission to speak to the caregivers and representatives has been obtained from the patient. Yes * Community resources currently utilized None * Additional services required to return to the preadmission environment? No * Can the patient safely return to the preadmission environment? Yes * Has this patient been hospitalized within the prior 30 days at any hospital? No Last DP export: 02/17/19 11:58 am Patient Name: LISA SANTOS Page 11608 at 1308 All edits/amendments must be made on the electronic document DICTATION DATE: 02/17/19 1307 SCARRER: ANN 02/17/19 1307 RPT#: [id number] DC DATE:02/17/19 STATUS: DIS IN [facility] [address] [place] [address] END OF REPORT
== END 2019-02-17 12:55 | disposition home or self-care (01) | DRG 236 ==
LOC: D.SDCHOLD 09:30 → D.CVICU 02-13 05:00 → D.SDCHOLD 02-13 05:00 → D.CVICU 02-13 09:49
PROVIDERS: ADMIT Thoracic Surgery (Cardiothoracic Vascular Surgery); ATTEND Thoracic Surgery (Cardiothoracic Vascular Surgery)
PROC: 021009W Bypass Coronary Artery, One Artery from Aorta with Autologous Venous Tissue, Open Approach (ICD-10-PCS; 2019-02-13)
PROC: 06BP0ZZ Excision of Right Saphenous Vein, Open Approach (ICD-10-PCS; 2019-02-13)
PROC: B24BZZ4 Ultrasonography of Heart with Aorta, Transesophageal (ICD-10-PCS; 2019-02-13)
PROC: 02100Z9 Bypass Coronary Artery, One Artery from Left Internal Mammary, Open Approach (ICD-10-PCS; principal; 2019-02-13 07:30)
DX: I25.110 Atherosclerotic heart disease of native coronary artery with unstable angina pectoris (principal); I10 Essential (primary) hypertension; E78.5 Hyperlipidemia, unspecified; D64.9 Anemia, unspecified; Z82.49 Family history of ischemic heart disease and other diseases of the circulatory system

== ENCOUNTER → 2019-03-12 11:57 | Outpatient (CLI) | payer BC ==
[2019-02-14 09:12] VITALS: BMI 30.2
[~2019-03-12 11:57] MED LIST changes: +COLACE100 MG PO; +K-TAB10 MEQ PO; +LOPRESSOR25 MG PO; +MYLANTA / MAALO30 ML PO; +PERCOCET 5-3251 TAB PO; +PLAVIX75 MG PO; +Senokot-S Tablet PO
[2019-03-12 12:39] LABS: HEMATOCRIT 38.7 % (42.0-54.0); MCH 31.1 pg (26.0-34.0); MCHC 33.6 g/dL (31.0-37.0); MCV 92.6 fL (80.0-100.0); MEAN PLATELET VOLUME 8.7 fL (7.4-10.4); RBC 4.18 10x6/uL (4.20-6.10); RDW 13.5 % (11.5-14.5); WBC 9.2 10x3/uL (4.8-10.8)
[2019-03-12 12:53] LABS: ANION GAP 10.8 mmol/L (8-16); CALCIUM 9.2 mg/dL (8.5-10.1); CARBON DIOXIDE 31.8 mmol/L (21.0-32.0); CREATININE - SERUM 1.1 mg/dL (0.6-1.3); POTASSIUM - SERUM 3.6 mmol/L (3.5-5.1)
== END | disposition home or self-care (01) ==
LOC: D.LAB 11:57
PROVIDERS: ATTEND Thoracic Surgery (Cardiothoracic Vascular Surgery)
DX: D64.9 Anemia, unspecified (principal); J90 Pleural effusion, not elsewhere classified

== ENCOUNTER → 2020-02-19 08:09 | Outpatient (CLI) | payer BC ==
[2019-02-14 09:12] VITALS: BMI 30.2
== END | disposition home or self-care (01) ==
LOC: D.HCCECHO 08:09
PROVIDERS: ATTEND Internal Medicine Cardiovascular Disease
DX: I25.10 Atherosclerotic heart disease of native coronary artery without angina pectoris (principal)